=== PATIENT | male | born 1985 | race Two or more races ===

== ENCOUNTER 2019-03-17 15:47 | Inpatient (IN) | payer MEDICAID, OTHER ==
[~2019-03-17] VITALS: Ht 170.2 cm; Wt 85.5 kg
[2019-03-17] MEDS ORDERED: SODIUM CHL 0.9% 0 ML ONE (15:51)
[2019-03-17] MEDS ORDERED: fentaNYL CITRATE 100 MCG/2 ML VL ONE (15:51)
[2019-03-17] MEDS ORDERED: LIDOCAINE 2%HCL (LOCAL ANESTH.) INJ 20ML MDV ONE (15:51)
[2019-03-17] MEDS ORDERED: ANGIOMAX 250 MG VIAL IV ONE (15:51)
[2019-03-17] MEDS ORDERED: MIDAZOLAM HCL 1MG/1ML-2 ML VIAL ONE ×2 (15:51→16:30)
[2019-03-17] MEDS ORDERED: MORPHINE SULFATE 4 MG/ML SYR/VIAL ONE (15:52)
[2019-03-17] MEDS ORDERED: IODIXANOL 320MG/ML 100ML BTL IV ONE (15:52)
[2019-03-17] MEDS ORDERED: HEPARIN SODIUM (PORCINE) 5000 UNITS/ML 1ML VIAL ONE ×2 (15:54→15:55)
[2019-03-17] MEDS ORDERED: SODIUM CHLORIDE 0.9% 1,000 ML IV ONE (15:56)
[2019-03-17 16:43] LABS: INR 1.05 (0.9-1.15); Partial Thromboplastin Time 33.8 sec (23.64-32.05)
[2019-03-17] MEDS ORDERED: KETOROLAC TROMETH 15 mg/ml 1ML VL ONE (16:43)
[2019-03-17 16:44] LABS: Albumin 3.2 g/dL (3.4-5.0); BUN/Creatinine Ratio 6.4; Basophils # (auto) 0.2 uL; Basophils % (auto) 1.2 % (0.0-2.0); Calcium 8.6 mg/dL (8.5-10.1); Eosinophils # (auto) 0.2 uL; Eosinophils % (auto) 0.9 % (0.0-7.0); Hematocrit 38.6 % (41.0-53.0); Hemoglobin 12.7 g/dL (13.5-17.5); Lymphocytes # (auto) 3.7 uL; Lymphocytes % (auto) 20.9 % (10.0-50.0); Mean Corpuscular Hemoglobin 28.1 pg (28.0-32.0); Mean Corpuscular Hgb Conc. 32.9 g/dL (32.0-36.0); Mean Corpuscular Volume 85.4 fL (80.0-100.0); Monocytes # (auto) 1.8 uL; Monocytes % (auto) 9.9 % (0.0-12.0); Neutrophils % (auto) 67.1 % (37.0-80.0); Nucleated Red Blood Cells % 0.1 %; Platelet Count (auto) 233 10^3/uL (140-450); Potassium 3.3 mmol/L (3.5-5.1); Red Blood Cells 4.53 10^6/uL (4.5-5.90); Red Cell Distribution Width 13.6 % (11.8-14.3); White Blood Cell 17.8 10^3/uL (4.4-10.8)
[2019-03-17 16:48] LABS: Bilirubin, Total 0.5 mg/dL (0.2-1.0); Total Protein 7.8 g/dL (6.4-8.2)
[2019-03-17] MEDS ORDERED: KETOROLAC TROMETH 15 mg/ml 1ML VL IV ONE (17:00)
[2019-03-17] MEDS ORDERED: IBUPROFEN 600 MG TAB PO PRN (17:00)
[2019-03-17] MEDS ORDERED: ACETAMINOPHEN 500 MG TAB PO PRN (17:30)
[2019-03-17] MEDS ORDERED: ONDANSETRON HCL 4 MG/2 ML VIAL IV PRN (17:30)
[2019-03-17] MEDS ORDERED: MORPHINE SULF INJ 2 MG/ML SYRINGE 1ML IV PRN (17:30)
[2019-03-17] MEDS ORDERED: NITROGLYCERIN 0.4 MG SL TAB SL PRN (17:30)
[2019-03-17 18:15] VITALS: BP 114/77
--- NOTE | 2019-03-17 18:15 | NUR ---
Telemetry admit from [facility] Pourer CHRISTINE VALERIO admitted to Telemetry unit after SBAR received. Patient oriented to Iris Ortiz RN, unit, room, bed, and unit policies regarding patient care and visiting hours. Patient now on continuous telemetry monitoring, tele box # 37 and telemetry reading on arrival to unit is 71. Patient placed on bedside oxygen at 2 LPM, weighed by bed scale and encouraged to call if he needs something. All questions and concerns addressed, patient verbalized understanding. Notes: Patient to lay flat in bed up to 6:20 pm as per [facility] RN Serg. Right groin dressing clean, dry and intact with tiny blood stain.
--- NOTE | 2019-03-17 19:20 | NUR ---
Opening Shift Note Received report from Iris MACDONALD. Assumed care of patient, awake and alert. No S/S of distress/SOB or pain. Right groin dressing c/d/i. Instructed on POC and to call for assist PRN, will continue to monitor for changes Q1hr and PRN.
[2019-03-17 22:00] VITALS: BP 103/75
[2019-03-17] MEDS: CARVEDILOL 3.125 MG TAB PO SCH (22:00)
[2019-03-18] MEDS: HYDROcodone-ACET 5/325MG TAB PO PRN (03:22)
--- NOTE | 2019-03-18 03:38 | NUR ---
Patient complaints of left-sided chest pain radiating to the right arm, shoulder and neck. ECG done showing NSR and possible acute pericarditis. Morphine 2mg IV given, will continue to monitor.
[2019-03-18 05:53] VITALS: BP 136/91
[2019-03-18 08:00] VITALS: BP 118/74
[2019-03-18] MEDS: PANTOPRAZOLE 40 MG TAB PO SCH (10:09)
[2019-03-18] MEDS: CARVEDILOL 3.125 MG TAB PO SCH ×2 (10:10→21:26)
[2019-03-18] MEDS: LISINOPRIL 5 MG TAB PO SCH (10:11)
[2019-03-18 12:00] VITALS: BP 102/69
[2019-03-18 13:42] LABS: BUN/Creatinine Ratio 7.1; Basophils # (auto) 0 uL; Basophils % (auto) 0.3 % (0.0-2.0); Calcium 8.5 mg/dL (8.5-10.1); Eosinophils # (auto) 0.1 uL; Eosinophils % (auto) 0.7 % (0.0-7.0); Hematocrit 38.3 % (41.0-53.0); Hemoglobin 12.6 g/dL (13.5-17.5); Lymphocytes # (auto) 2.5 uL; Lymphocytes % (auto) 20.3 % (10.0-50.0); Mean Corpuscular Hemoglobin 28.3 pg (28.0-32.0); Mean Corpuscular Hgb Conc. 32.8 g/dL (32.0-36.0); Mean Corpuscular Volume 86.3 fL (80.0-100.0); Monocytes # (auto) 0.9 uL; Monocytes % (auto) 7.6 % (0.0-12.0); Neutrophils # (auto) 8.7 uL; Neutrophils % (auto) 71.1 % (37.0-80.0); Nucleated Red Blood Cells % 0.1 %; Platelet Count (auto) 232 10^3/uL (140-450); Potassium 3.8 mmol/L (3.5-5.1); Red Blood Cells 4.44 10^6/uL (4.5-5.90); Red Cell Distribution Width 13.8 % (11.8-14.3); White Blood Cell 12.2 10^3/uL (4.4-10.8)
--- NOTE | 2019-03-18 14:15 | NUR ---
Received call from laboratory re: critical Troponin level of 27.[address] Allen at the nurse station, informed her of the result and saw the patient. ordered for serial Troponin level. Continue care.
[2019-03-18 15:25] LABS: Urine Bacteria FEW /hpf (None Seen); Urine Blood Negative /uL (Negative); Urine Mucus FEW (None Seen); Urine Specific Gravity 1.047 (1.001-1.035); Urine WBC 23 /hpf (0 - 3)
--- NOTE | 2019-03-18 15:26 | NUR ---
Care endorsed to Kellen MACDONALD.
--- NOTE | 2019-03-18 15:35 | NUR ---
RECEIVED PATIENT FROM DAY SHIFT RN. PATIENT RESTING IN BED. NO S/S OF DISTRESS NOTED. DENIED CHEST PAIN AND ANY CHEST DISCOMFORT. POC INSTRUCTED AND ENCOURAGED PATIENT TO CALL FOR WORKDAY CONSULTANT IF NEEDED. BED IN LOWEST POSITION WITH SIDE RAILS UP X 2. CALL GARCIA WITHIN REACH. CONTINUE TO MONITOR FOR CHANGES Q1H AND PRN.
[2019-03-18 15:42] LABS: Alcohol, Urine < 3.0 mg/dL (0-5); Amphetamine Screen, Urine NEGATIVE (NEGATIVE); Barbiturate Scree,Urine NEGATIVE (NEGATIVE); Benzodiazephine Screen, Urine POSITIVE (NEGATIVE); Cannabinoid Screen, Urine POSITIVE (NEGATIVE); Cocaine Screen, Urine NEGATIVE (NEGATIVE); Opiate Scree,Urine POSITIVE (NEGATIVE); Phencyclidine Screen, Urine NEGATIVE (NEGATIVE)
[2019-03-18 17:00] VITALS: BP 108/65
--- NOTE | 2019-03-18 21:25 | NUR ---
PATIENT SLEEPING. NO S/S OF DISTRESS NOTED. WOKE PATIENT FOR SCHEDULED MEDICATION. AND FIXED LEADS OF TELE BOX. CONTINUE TO MONITOR.
[2019-03-18 21:48] VITALS: BP 109/67
--- NOTE | 2019-03-19 01:39 | NUR ---
PATIENT SLEEPING. NO S/S OF DISTRESS NOTED. CONTINUE CAREL
[2019-03-19] MEDS: HYDROcodone-ACET 5/325MG TAB PO PRN (03:38)
--- NOTE | 2019-03-19 03:39 | NUR ---
PATIENT C/O STOMACH PAIN @ 6/10, MEDICATED PATIENT ORDERED. CONTINUE TO MONITOR.
[2019-03-19 04:49] VITALS: BP 114/72
[2019-03-19 07:12] LABS: Basophils # (auto) 0 uL; Basophils % (auto) 0.2 % (0.0-2.0); Eosinophils # (auto) 0.2 uL; Eosinophils % (auto) 1.4 % (0.0-7.0); Hematocrit 38.1 % (41.0-53.0); Hemoglobin 12.5 g/dL (13.5-17.5); Lymphocytes # (auto) 2.2 uL; Lymphocytes % (auto) 19.5 % (10.0-50.0); Mean Corpuscular Hgb Conc. 32.8 g/dL (32.0-36.0); Mean Corpuscular Volume 85.4 fL (80.0-100.0); Monocytes # (auto) 0.9 uL; Monocytes % (auto) 7.5 % (0.0-12.0); Neutrophils # (auto) 8.2 uL; Neutrophils % (auto) 71.4 % (37.0-80.0); Nucleated Red Blood Cells % 0.1 %; Platelet Count (auto) 256 10^3/uL (140-450); Red Blood Cells 4.46 10^6/uL (4.5-5.90); Red Cell Distribution Width 13.5 % (11.8-14.3); White Blood Cell 11.5 10^3/uL (4.4-10.8)
[2019-03-19 07:23] LABS: BUN/Creatinine Ratio 8.9; Calcium 8.5 mg/dL (8.5-10.1); Potassium 3.7 mmol/L (3.5-5.1)
--- NOTE | 2019-03-19 07:50 | NUR ---
Opening Note Assumed care of patient. He is A & O x 4, patient states "I am tired." Patient c/o pain to the abdomen that goes up toward his neck. Patient is uncomfortable at this time. Will medicate per orders. Patient also states "I am homeless," will consult social work specialist. Patient POC discussed. Bed is in low, locked position, call light within reach, educated patient regarding use of call light. Patient is able to safely ambulate to the restroom. Will continue to monitor Q1h and PRN.
[2019-03-19 09:00] VITALS: BP 110/72
[2019-03-19] MEDS: CARVEDILOL 3.125 MG TAB PO SCH ×2 (09:52→21:42)
[2019-03-19] MEDS: POTASSIUM CHL 10 Meq TABLET PO SCH (09:53)
[2019-03-19] MEDS: LISINOPRIL 5 MG TAB PO SCH (09:55)
[2019-03-19] MEDS: PANTOPRAZOLE 40 MG TAB PO SCH (09:56)
[2019-03-19] MEDS: FUROSEMIDE 20 MG TAB PO SCH (09:56)
[2019-03-19] MEDS: MORPHINE SULF INJ 2 MG/ML SYRINGE 1ML IV PRN ×3 (09:58→22:55)
[2019-03-19 13:00] VITALS: BP 118/75
[2019-03-19 17:00] VITALS: BP 118/83
--- NOTE | 2019-03-19 19:15 | NUR ---
Opening Shift Note Received report from Tianna MACDONALD. Assumed care of patient, awake and alert. No S/S of distress/SOB or pain. Instructed on POC and to call for assist PRN, will continue to monitor for changes Q1hr and PRN.
[2019-03-19 21:59] VITALS: BP 110/69
--- NOTE | 2019-03-19 22:45 | NUR ---
ASSUMED CARE OF PATIENT RECEIVED REPORT FROM RNANNA. PT IS AWAKE, ALERT AND ORIENTATED X 4 WITH NO S/S OF DISTRESS BY PAIN /. PT IS S/P LEFT HEAR CATH. GROIN'S DRESSING IS CLEAN, DRY AND INTACT. BED BRAKES ARE ON AND CALL LIGHT IS WITH IN REACH. BED IS IN LOWEST POSITION AND SIDE RAILS ARE UP X 2. WILL MONITOR Q 1HR.
--- NOTE | 2019-03-19 22:48 | NUR ---
Care endorsed to Polo MACDONALD.
[2019-03-20 05:00] VITALS: BP 114/71
[2019-03-20] MEDS: MORPHINE SULF INJ 2 MG/ML SYRINGE 1ML IV PRN ×2 (06:25→12:51)
--- NOTE | 2019-03-20 07:32 | NUR ---
closing notes endorsed care to day shift nurseTianna.
--- NOTE | 2019-03-20 07:40 | NUR ---
Opening Note Assumed care of patient. He is A& O x4, he is sitting up eating breakfast. Patient is receptive to education regarding his disease process and condition. Patient is comfortable at this time, though he c/o pain from his upper left quadrant abdomen pain that radiates up to the left side of his neck when he takes a deep breath, or performs ADLs. POC discussed with patient. Bed is in low, locked position, call light within reach, will continue to monitor Q1h and PRN.
--- NOTE | 2019-03-20 08:53 | NUR ---
Troponin Levels trending down. This morning troponin 1.2
--- NOTE | 2019-03-20 08:55 | NUR ---
Attempted to page Attending MD Dr. Rouse is assigned to this patient. Consulted with Dr. Washington regarding the need for an attending physician for this patient, he stated "he will be assigned a doctor." Spoke to hospitalist Beka Fry regarding critical Troponin level 1.2 that is trending down from 1.87. No further orders at this time. Will continue to monitor patient.
[2019-03-20 09:00] VITALS: BP 107/63
[2019-03-20] MEDS: PANTOPRAZOLE 40 MG TAB PO SCH (10:49)
[2019-03-20] MEDS: POTASSIUM CHL 10 Meq TABLET PO SCH (10:49)
[2019-03-20] MEDS: FUROSEMIDE 20 MG TAB PO SCH (10:50)
[2019-03-20] MEDS: LISINOPRIL 5 MG TAB PO SCH (10:53)
[2019-03-20] MEDS: CARVEDILOL 3.125 MG TAB PO SCH (10:54)
--- NOTE | 2019-03-20 12:48 | NUR ---
[place] patient status Would like this RN to page Dr. Stubbs to update status of patient and troponin level trending down, if Dr. Stubbs would like to place patient on [facility] for anginal pain and if he would like to clear patient for discharge.
--- NOTE | 2019-03-20 12:56 | NUR ---
Paged Dr. Stubbs.
[2019-03-20 13:00] VITALS: BP 114/73
--- NOTE | 2019-03-20 13:12 | NUR ---
Paged optimization manager oncology social work for consultation. Patient states he is "homeless," it is stressful for the patient and he needs some resources.
--- NOTE | 2019-03-20 14:35 | NUR ---
Return Phone call from Dr. Stubbs Regarding patient troponin level trending down and possible clearance for discharge. Dr. Stubbs orders received, read back, and verified: EKG now and previous EKG fax to [phone], orders regarding pain medication management and labs. Will medicate per orders and follow-up with Dr. Stubbs.
[2019-03-20] MEDS ORDERED: KETOROLAC TROMETH 15 mg/ml 1ML VL IV ONE (15:00)
[2019-03-20] MEDS ORDERED: NAPROXEN 500 MG TAB PO PRN ×2 (15:00→16:15)
[2019-03-20] MEDS ORDERED: LISI-275 PO (15:08)
[2019-03-20] MEDS ORDERED: ACET500T42 PO (15:08)
[2019-03-20] MEDS ORDERED: FUR20T PO (15:08)
[2019-03-20] MEDS ORDERED: CAR3125T PO (15:08)
[2019-03-20] MEDS ORDERED: ASPI81CH43 PO (15:09)
[2019-03-20] MEDS ORDERED: COLCHICINE 0.6 MG CAP PO SCH (16:15)
--- NOTE | 2019-03-20 16:23 | NUR ---
Spoke to Dr. Stubbs Regarding ESR level, medication management, and EKG. Orders received, read back, verified. Will medicate per orders. Dr. Stubbs said "it is ok to discharge", but would like tati and ana m added to the discharge and to have patient follow up with him in 2 weeks.
[2019-03-20 17:00] VITALS: BP 108/71
[2019-03-20] MEDS ORDERED: COLCPOW2 PO (18:01)
[2019-03-20] MEDS ORDERED: NAP500T PO (18:05)
[2019-03-20 18:40] VITALS: BP 114/73
--- NOTE | 2019-03-20 19:26 | NUR ---
Opening Shift Note Assumed care of patient, awake and alert. No S/S of distress/SOB or pain. Instructed on POC and to call for assist PRN, will continue to monitor for changes Q1hr and PRN. Side rails up x2. Bed locked in lowest position. Call light within reach.
--- NOTE | 2019-03-20 19:30 | NUR ---
Explained to patient that there is a social service consult placed in order to get the patient a place to stay and access resource. Patient verbalized "That wont be necessary, I will be staying with my friends" Will notify Dr. Harish Gonzalez.
--- NOTE | 2019-03-20 20:01 | NUR ---
Dr. Gonzalez called back and ordered to continue discharge if patient has a place to live.
== END 2019-03-20 20:15 | disposition home health service (06) | DRG 190 ==
LOC: ER 15:51 → TELE-CENTR 15:52
PROVIDERS: ADMIT Specialist; ATTEND Internal Medicine
PROC: 4A023N7 Measurement of Cardiac Sampling and Pressure, Left Heart, Percutaneous Approach (ICD-10-PCS; principal; 2019-03-17)
PROC: B2111ZZ Fluoroscopy of Multiple Coronary Arteries using Low Osmolar Contrast (ICD-10-PCS; 2019-03-17)
PROC: B2151ZZ Fluoroscopy of Left Heart using Low Osmolar Contrast (ICD-10-PCS; 2019-03-17)
DX: I21.3 ST elevation (STEMI) myocardial infarction of unspecified site (principal); R65.11 Systemic inflammatory response syndrome (SIRS) of non-infectious origin with acute organ dysfunction; I50.23 Acute on chronic systolic (congestive) heart failure; F17.210 Nicotine dependence, cigarettes, uncomplicated; E87.6 Hypokalemia; N39.0 Urinary tract infection, site not specified; I42.9 Cardiomyopathy, unspecified; Z72.89 Other problems related to lifestyle
CPT/HCPCS: 36415; 71045; 80048; 80053; 80307; 81001; 84484; 85025; 85610; 85652; 85730; 93005; 93458; 99152; 99291; G0378; J2250; Q9967